=== PATIENT | male | born 1975 | race Two or more races ===

== ENCOUNTER 2018-09-14 14:12 | Emergency (ER) | payer OTHER ==
[~2018-09-14] VITALS: Ht 165.1 cm; Wt 87.5 kg
[2018-09-14 14:30] VITALS: BP 143/89
[2018-09-14] MEDS ORDERED: NKM (14:33)
--- NOTE | 2018-09-14 15:36 | Emergency Room Report ---
History of Present Illness General Chief Complaint: Back Injury Source: Patient Present Illness HPI 43-year-old male presents to the emergency department complaining of 5 out of 10 severity right-sided low back pain with radiation down the right leg x1 week. Patient reports acute onset after lifting a heavy box at work 1 week ago. Patient states he was initially evaluated at [facility] and was taking Flexeril and Motrin. Patient reports he has continued symptoms. Patient reports pain is exacerbated upon standing straight up and laying flat on his back. He reports intermittent tingling sensations at the right knee. Patient denies significant trauma or fall denies previous injury to the low back or right lower extremity. Patient denies recent spinal procedures or history of neoplastic disease denies fevers, chills. Denies Saddle anesthesia, gross loss of sensation or gross motor movements of the extremities, incontinence of bowel or bladder. Denies CP, Palpitations, LOC, AMS, dizziness, Changes in Vision, weakness or a sudden severe headache. Allergies: Coded Allergies: No Known Allergies (Unverified , 09/14/18) Patient History Past Medical History: see triage record Past Surgical History: none Pertinent Family History: none Reviewed Nursing Documentation: PMH: Agreed; PSxH: Agreed Nursing Documentation-PMH Past Medical History: No Stated History Review of Systems All Other Systems: negative except mentioned in HPI Physical Exam Vital Signs Date Time Temp Pulse Resp B/P (MAP) Pulse Ox O2 Delivery O2 Flow Rate FiO2 09/14/18 14:30 98.4 85 16 143/89 (107) 96 Room Air Sp02 EP Interpretation: reviewed, normal General Appearance: no apparent distress, alert, GCS 15, non-toxic Head: normocephalic, atraumatic Eyes: bilateral eye normal inspection, bilateral eye PERRL ENT: hearing grossly normal, normal voice Neck: full range of motion Respiratory: lungs clear, normal breath sounds, speaking full sentences Cardiovascular #1: regular rate, rhythm Musculoskeletal: gait/station normal, normal range of motion, tender - Right sided Lumbar Paraspinal and upper gluteal TTP, FROM with exacerbation of pain temporarily in Stright/flat positions, no LE weakness, pt. is NVI, no erythema, midline bony ttp, step-offs or obvious deformity. Neurologic: alert, oriented x3, responsive, motor strength/tone normal, sensory intact, normal gait, speech normal, grossly normal Psychiatric: judgement/insight normal Medical Decision Making PA Attestation Dr. Mchugh is my supervising physician whom pt. management has been discussed with. Diagnostic Impression: Primary Impression: Acute lumbosacral myofascial strain Qualified Codes: S39.012A - Strain of muscle, fascia and tendon of lower back , initial encounter Additional Impression: Sciatica of right side ER Course 43-year-old male presents to the emergency department complaining of 5 out of 10 severity right-sided low back pain with radiation down the right leg x1 week. Patient reports acute onset after lifting a heavy box at work 1 week ago. Patient states he was initially evaluated at [facility] and was taking Flexeril and Motrin. Patient reports he has continued symptoms. Patient reports pain is exacerbated upon standing straight up and laying flat on his back. He reports intermittent tingling sensations at the right knee. Patient denies significant trauma or fall denies previous injury to the low back or right lower extremity. Patient denies recent spinal procedures or history of neoplastic disease denies fevers, chills. Denies Saddle anesthesia, gross loss of sensation or gross motor movements of the extremities, incontinence of bowel or bladder. Denies CP, Palpitations, LOC, AMS, dizziness, Changes in Vision, weakness or a sudden severe headache. Ddx considered but are not limited to Fracture, dislocation, contusion, epidural abscess, Herniated disk, Sprain/Strain/Spasm just to name a few. Vital signs: are WNL, pt. is afebrile H&PE are most consistent with Right sided sciatica due to lumbosacral strain.-- No evidence of cauda equina or incontinence I do not suspect significant spinal cord injury that would require emergent imaging or interventions at this time. Pt. unable to tolerate straight leg raise. ORDERS: X-ray not required at this time, no spinous process tenderness ED INTERVENTIONS: IM Toradol 30mg. -I do not identify an emergent condition at this time. With current presentation , pt. is stable for close outpatient follow up and conservative treatment. D/ w pt. to return promptly to ED with worsening or new symptoms.- Pt. verbalizes' understanding and agreement with proposed treatment plan. DISCHARGE: At this time pt. is stable for d/c to home. Will provide printed patient care instructions, and any necessary prescriptions. Care plan and follow up instructions have been discussed with the patient prior to discharge. Last Vital Signs Date Time Temp Pulse Resp B/P (MAP) Pulse Ox O2 Delivery O2 Flow Rate FiO2 09/14/18 14:30 98.4 85 16 143/89 (107) 96 Room Air Disposition: HOME, SELF-CARE Condition: Stable Scripts Methocarbamol* (ROBAXIN-750*) 750 Mg Tablet 750 MG PO QID, #28 TAB 0 Refills Prov: Jesica Griffin 09/14/18 Carisoprodol* (CARISOPRODOL*) 350 Mg Tablet 350 MG ORAL ONCE, #1 TAB Take 1 "Soma/carisoprodol" tonight at bedtime. Then start taking "Robaxin/methocarbamol" for maintenance starting tomorrow, do not take both medications at the same time. Prov: Jesica Griffin 09/14/18 Departure Forms: Return to Work Return to Work Date: Sep 20, 2018 Work Restrictions: No Heavy Lifting, No Prolonged Standing Other Restrictions: May return Sooner if Symptoms have resolved. Return to Full Activity: Sep 25, 2018 Patient Instructions: Back Injury Prevention, Sciatica, [id number] Additional Instructions: Take medications as directed. Take 1 "Soma/carisoprodol" tonight at bedtime. Then start taking "Robaxin /methocarbamol" for maintenance starting tomorrow, do not take both medications at the same time. Follow up with a Primary Care Provider in 3-5 days, even if your symptoms have resolved. --Please review list of primary care clinics, if you do not already have a primary care provider Return sooner to ED if new symptoms occur, or current symptoms become worse. Do not drink alcohol, drive, or operate heavy machinery while taking Robaxin ( Muscle Relaxers) as this may cause drowsiness. - Please note that this Emergency Department Report was dictated using [email or web address] technology software, occasionally this can lead to erroneous entry secondary to interpretation by the dictation equipment. Jesica Griffin Sep 14, 2018 15:36
[2018-09-14] MEDS ORDERED: CARISOPRODOL350 MG ORAL (15:41)
[2018-09-14] MEDS ORDERED: ROBAXIN-750750 MG PO (15:41)
[2018-09-14] MEDS ORDERED: Ketorolac 30mg Inj IM ONE (15:45)
[2018-09-14 16:12] VITALS: BP 127/80
--- NOTE | 2018-09-14 16:12 | NUR ---
ER DISCHARGE NOTE: Pt was seen due to back pain after lifting a heavy object at work. Patient is cleared to be discharged per PA, pt is aox4, on room air, with stable vital signs. pt was given dc and prescription instructions, pt was able to verbalize understanding, pt id band removed without. pt is able to ambulate with steady gait. pt took all belongings.
== END 2018-09-14 16:15 | disposition home or self-care (01) ==
LOC: EDUNIT# 14:12 → EMR 15:48
DX: S39.012A Strain of muscle, fascia and tendon of lower back, initial encounter (principal); M54.41 Lumbago with sciatica, right side; X50.0XXA Overexertion from strenuous movement or load, initial encounter; Y92.9 Unspecified place or not applicable
CPT/HCPCS: 96372; 99283; J1885